=== PATIENT | female | born 1945 | race Caucasian/White ===

== ENCOUNTER 2021-04-19 12:39 | Emergency (ER) | payer BC ==
[~2021-04-19] VITALS: Ht 167.6 cm; Wt 59.9 kg
--- NOTE | 2021-04-19 12:39 | NUR ---
BIB78 FR HOME C/O NEAR SYNCOPAL EPISODE -LOC -TRAUMA, WAS ABLE TO CATCH PER CAREGIVER. BREATHING REGULAR AND UNLABORED.
--- NOTE | 2021-04-19 12:57 | NUR ---
IV ESTABLISHED L WRIST 20G, LABS COLLECTED AND SENT
--- NOTE | 2021-04-19 12:59 | NUR ---
PT TAKEN TO CT
[2021-04-19 13:04] LABS: BASOPHILS % (AUTO) 0.4 % (0.0-2.0); EOSINOPHILS % (AUTO) 1.1 % (0.0-6.0); HEMATOCRIT 33 % (33-45); HEMOGLOBIN 11.4 g/dL (11.5-14.8); LYMPHOCYTES # (AUTO) 3.4 K/uL (0.8-4.8); LYMPHOCYTES % (AUTO) 27.7 % (20.0-44.0); MEAN CORPUSCULAR HGB CONC 34 g/dl (31.0-36.0); MEAN CORPUSCULAR VOLUME 95 fL (82-100); MONOCYTES % (AUTO) 8.3 % (2.0-12.0); NEUTROPHILS # (AUTO) 7.6 K/uL (1.8-8.9); NEUTROPHILS % (AUTO) 62.5 % (43.0-81.0); PLATELET COUNT (AUTO) 330 K/uL (150-450); RED BLOOD CELL COUNT(AUTO) 3.53 MIL/uL (4.0-5.2); WHITE BLOOD COUNT (AUTO) 12.1 K/uL (4.3-11.0)
--- NOTE | 2021-04-19 13:06 | NUR ---
THE PATIENT IS BACK FROM CT
[2021-04-19 13:19] LABS: ALANINE AMINOTRANSFERASE < 6 U/L (12-78); ALBUMIN 3.1 g/dL (3.4-5.0); ALKALINE PHOSPHATASE 41 U/L (46-116); ASPARTATE AMINOTRANSFERASE 12 U/L (15-37); BILIRUBIN,DIRECT 0.1 mg/dL (0.0-0.2); BILIRUBIN,TOTAL 0.4 mg/dL (0.2-1.0); CALCIUM, SERUM 8.4 mg/dL (8.5-10.1); CARBON DIOXIDE 23 mmol/L (21-32); CHLORIDE 104 mmol/L (98-107); CREATININE 0.9 mg/dL (0.6-1.3); GLUCOSE 168 mg/dL (74-106); POTASSIUM 4.1 mmol/L (3.5-5.1); SODIUM SERUM 137 mmol/L (136-145); TOTAL PROTEIN, SERUM 6.2 g/dL (6.4-8.2); UREA NITROGEN, BLOOD 34 mg/dL (7-18)
--- NOTE | 2021-04-19 13:48 | NUR ---
[facility] WILL PICK HER UP IN 20 MIN
[2021-04-19 14:07] VITALS: BP 144/84
--- NOTE | 2021-04-19 14:07 | NUR ---
IV removed. Catheter intact and site benign. Pressure and 4x4 applied to site. No bleeding noted.Patient discharged to home in stable condition. Written and verbal after care instructions given. Patient verbalizes understanding of instruction. The patient is picked up by her and son.
== END 2021-04-19 14:08 | disposition home or self-care (01) ==
LOC: ER 12:46
DX: R55 Syncope and collapse (principal); G20 Parkinson's disease; I10 Essential (primary) hypertension; Z88.5 Allergy status to narcotic agent; Z88.4 Allergy status to anesthetic agent
CPT/HCPCS: 36415; 70450-TC; 71045-TC; 80048-TC; 80076-TC; 84484-TC; 85025-TC